=== PATIENT | female | born 1960 | race Caucasian/White ===

== ENCOUNTER 2023-03-13 15:14 | Outpatient (CLI) | payer OTHER ==
--- NOTE | 2023-03-13 18:19 | DEXA Report ---
PROCEDURE: Dexa Spine and/or Hip INDICATIONS: HIST OF OSTEOPENIA TECHNIQUE: Dual energy x-ray absorptiometry (DXA) was performed on a emotion[employer] System. Regions measur ed are the AP Spine, femoral neck, and if needed forearm. COMPARISON: None FINDINGS: Lumbar Spine: Bone Mineral Density 0.910 g/cm/cm,T score -2.3. Osteopenia Left Femoral Neck: Bone Mineral Density 0.757 g/cm/cm, T score -2.0. Osteopenia Left Hip: Bone Mineral Density 0.778 g/cm/cm,T score -1.8. Osteopenia (T score greater or equal to -1.0: NORMAL) (T score from -1.1 to -2.4: OSTEOPENIA) (T score less than or equal to -2.5 to: OSTEOPOROSIS) Impression: By WHO criteria, this patient has low bone density (osteopenia). Patients with diagnosis of osteoporosis or osteopenia should have regular bone mineral density assess ment. For those eligible for Medicare, routine testing is allowed once every 2 years. Testing frequ ency can be increased for patients who have rapidly progressing disease or for those who are receivin g medical therapy to restore bone mass. Reviewed by: Acacia Zavaleta MD on 03/13/2023 6:18 PM PST Approved by: Acacia Zavaleta MD on 03/13/2023 6:18 PM PST Station ID: [id number]
== END 2023-03-13 15:15 | disposition home or self-care (01) ==
LOC: DI 15:14
PROVIDERS: ATTEND Family Medicine
DX: Z91.89 Other specified personal risk factors, not elsewhere classified (principal); M85.89 Other specified disorders of bone density and structure, multiple sites